=== PATIENT | male | born 1955 | race Caucasian/White ===

== ENCOUNTER 2024-04-09 12:02 | Inpatient (IN) | payer OTHER ==
[~2024-04-09] VITALS: Ht 185.4 cm; Wt 94.8 kg
[~2024-04-09 12:02] MED LIST: ASPIRIN ADULT L81 M2 PO; COZAAR100 MG PO; DITROPAN XL10 MG PO; HYDROCHLOROTH12.5 M2 PO; INVEGA3 MG PO; LIPITOR80 MG PO; MEMANTINE HCL10 MG PO; METOPROLOL SUCC50 M2 PO; MIRALAX POWDER17 G1 PO; NORVASC10 MG PO; PALIPERIDONE ER6 MG PO; REMERON15 M2 PO; RIVASTIGMINE TAR3 M1 PO; RIVASTIGMINE TAR6 M1 PO; ROZEREM8 MG PO; SENNA8.6 MG PO; SYMB80 INH; VITAMIN D325 MCG PO
[2024-04-09 12:13] VITALS: BP 111/59
[2024-04-09 12:24] LABS: BASO # 0.1 10*3/uL (0.0-0.1); EOS # 0.4 10*3/uL (0.0-0.4); EOS % 3.3 % (1.0-4.0); HEMATOCRIT 47.7 % (42.0-52.0); LYMPH # 1.3 10*3/uL (1.3-4.4); LYMPH % 10.8 % (27.0-41.0); MEAN CORPUSCULAR HGB 31.7 pg (27.0-31.0); MEAN CORPUSCULAR HGB CONC 32.1 g/dl (33.0-37.0); MEAN PLATELET VOLUME 10.3 fl (9.6-12.3); MONO % 7.8 % (3.0-9.0); NEUT # 9.3 10*3/uL (2.3-7.9); NEUT % 76.4 % (47.0-73.0); PLATELET COUNT AUTOMATED 270 10*3/uL (130-400); RED BLOOD COUNT 4.82 10*6/uL (4.50-5.90); RED CELL DISTRI WIDTH 12.8 % (0-14.5); WHITE BLOOD COUNT 12.2 10*3/uL (4.8-10.8)
[2024-04-09] MEDS ORDERED: HYDROCHLOROTH12.5 M2 PO (12:27)
[2024-04-09] MEDS ORDERED: GEMTESA75 MG PO (12:27)
[2024-04-09 12:42] LABS: BUN 19 mg/dl (9-23); CHLORIDE 110 mmol/L (98-107); POTASSIUM 3.9 mmol/L (3.4-5.1)
[2024-04-09 14:07] LABS: BILIRUBIN Negative (Negative); BLOOD Negative (Negative); CLARITY Clear (Clear); COLOR Yellow (Yellow); GLUCOSE Negative (Negative); KETONE Negative (Negative); LEUKO ESTERASE 2+ (Negative); NITRITE Positive (Negative); PH 5.5 (4.5-8.0)
[2024-04-09 14:26] LABS: BACTERIA 4+; WBC TNTC wbc/hpf (0-5)
[2024-04-09 15:23] VITALS: BP 120/68
[2024-04-09 17:13] VITALS: BP 118/74
[2024-04-09] MEDS ORDERED: ACETAMINOPHEN 325 MG TAB PO PRN (20:00)
[2024-04-09] MEDS ORDERED: Magnesium Hydroxide 30 ML UDC PO PRN (20:00)
[2024-04-09] MEDS ORDERED: MG-AL HYDROXIDE/SIMETICONE 30 ML UDC PO PRN (20:00)
[2024-04-09] MEDS ORDERED: Menthol/Zinc Oxide 4 GM THIN T PRN (20:05)
[2024-04-09] MEDS ORDERED: NAMENDA-5 PO (20:09)
[2024-04-09] MEDS ORDERED: RISPERDAL1 M1 PO (20:10)
[2024-04-09] MEDS ORDERED: ATIVAN1 MG PO (20:15)
[2024-04-09] MEDS ORDERED: STERILE WATER 110 ML IM (20:16)
[2024-04-09] MEDS ORDERED: ATIVAN1 MG IM (20:16)
[2024-04-09] MEDS ORDERED: GEODON20 MG/1 ML IM (20:17)
[2024-04-09] MEDS ORDERED: LORazepam 1 MG TAB PO PRN (20:30)
[2024-04-09] MEDS ORDERED: Water, Sterile 10 ML VIAL IM PRN (20:30)
[2024-04-09] MEDS ORDERED: Ziprasidone Mesylate 20 MG VIAL IM PRN (20:30)
[2024-04-09] MEDS ORDERED: ATIVAN2 MG/1 ML IM (20:31)
[2024-04-09] MEDS ORDERED: LORazepam 2 MG/ML VIAL IM PRN (20:35)
[2024-04-09 20:55] VITALS: BP 113/60
[2024-04-09] MEDS ORDERED: RISPERIDONE 1 MG TAB PO SCH (21:00)
[2024-04-09] MEDS ORDERED: Memantine Hydrochloride 5 MG TAB PO SCH (21:00)
[2024-04-09] MEDS ORDERED: Rivastigmine Tartrate 3 MG CAP PO SCH (21:00)
[2024-04-09] MEDS ORDERED: Mirtazapine 15 MG TAB PO SCH (21:00)
[2024-04-10] MEDS ORDERED: Polyethylene Glycol 3350 17 GM PACKET PO PRN (04:40)
[2024-04-10 07:31] LABS: ALKALINE PHOSPHATASE 105 U/L (46-116); BUN 16 mg/dl (9-23); CHLORIDE 108 mmol/L (98-107); CHOLESTEROL 109 mg/dL (<200); LDL CHOLESTEROL 63 mg/dL (9-159); POTASSIUM 3.8 mmol/L (3.4-5.1); SGPT/ALT 9 U/L (5-49); TOTAL PROTEIN 6.9 gm/dL (6.0-8.0); TRIGLYCERIDES 72 mg/dl (<150)
[2024-04-10 08:00] VITALS: BP 84/55
[2024-04-10 08:18] LABS: BASO # 0.1 10*3/uL (0.0-0.1); BASO % 0.9 % (0.0-1.0); EOS # 0.4 10*3/uL (0.0-0.4); EOS % 3.5 % (1.0-4.0); HEMATOCRIT 49.6 % (42.0-52.0); LYMPH # 1.7 10*3/uL (1.3-4.4); LYMPH % 13.5 % (27.0-41.0); MEAN CELL VOLUME 97.6 fl (80.0-94.0); MEAN CORPUSCULAR HGB 31.1 pg (27.0-31.0); MEAN CORPUSCULAR HGB CONC 31.9 g/dl (33.0-37.0); MEAN PLATELET VOLUME 10.6 fl (9.6-12.3); MONO # 0.8 10*3/uL (0.1-1.0); MONO % 6.5 % (3.0-9.0); NEUT # 9.5 10*3/uL (2.3-7.9); PLATELET COUNT AUTOMATED 224 10*3/uL (130-400); RED BLOOD COUNT 5.08 10*6/uL (4.50-5.90); RED CELL DISTRI WIDTH 12.8 % (0-14.5); WHITE BLOOD COUNT 12.7 10*3/uL (4.8-10.8)
[2024-04-10 08:27] LABS: VITAMIN D, 25-HYDROXY 50.8 ng/mL (30-100)
[2024-04-10] MEDS ORDERED: Losartan Potassium 50 MG TAB PO SCH (09:00)
[2024-04-10] MEDS ORDERED: ASPIRIN ENTERIC COATED 81 MG TAB PO SCH (09:00)
[2024-04-10] MEDS ORDERED: Ciprofloxacin Hydrochloride 250 MG TAB PO SCH (09:00)
[2024-04-10] MEDS ORDERED: HYDROCHLOROTHIAZIDE 25 MG TAB PO SCH (09:00)
[2024-04-10] MEDS ORDERED: amLODIPine besylate 10 MG TAB PO SCH (09:00)
[2024-04-10] MEDS ORDERED: METOPROLOL SUCCINATE XR 50 MG TAB PO SCH (09:00)
[2024-04-10] MEDS ORDERED: Sennosides A and B 8.6 MG TAB PO SCH (09:00)
[2024-04-10] MEDS ORDERED: Cholecalciferol 2,000 UNIT TABLET (50 MCG) PO SCH (09:00)
[2024-04-10 11:08] VITALS: BP 98/63
[2024-04-10 20:00] VITALS: BP 116/61
[2024-04-10] MEDS ORDERED: ATORVASTATIN CALCIUM 80 MG TAB PO SCH (21:00)
[2024-04-11 07:45] LABS: ALKALINE PHOSPHATASE 108 U/L (46-116); BUN 20 mg/dl (9-23); CHLORIDE 108 mmol/L (98-107); POTASSIUM 3.8 mmol/L (3.4-5.1); SGPT/ALT 13 U/L (5-49); TOTAL PROTEIN 7.1 gm/dL (6.0-8.0)
[2024-04-11 07:47] LABS: BASO # 0.1 10*3/uL (0.0-0.1); BASO % 0.8 % (0.0-1.0); EOS # 0.4 10*3/uL (0.0-0.4); EOS % 3.3 % (1.0-4.0); HEMATOCRIT 46.7 % (42.0-52.0); LYMPH # 1.5 10*3/uL (1.3-4.4); LYMPH % 12.3 % (27.0-41.0); MEAN CELL VOLUME 96.7 fl (80.0-94.0); MEAN CORPUSCULAR HGB 31.5 pg (27.0-31.0); MEAN CORPUSCULAR HGB CONC 32.5 g/dl (33.0-37.0); MONO # 0.7 10*3/uL (0.1-1.0); MONO % 5.7 % (3.0-9.0); NEUT # 9.6 10*3/uL (2.3-7.9); NEUT % 77.4 % (47.0-73.0); PLATELET COUNT AUTOMATED 220 10*3/uL (130-400); RED BLOOD COUNT 4.83 10*6/uL (4.50-5.90); RED CELL DISTRI WIDTH 12.8 % (0-14.5); WHITE BLOOD COUNT 12.4 10*3/uL (4.8-10.8)
[2024-04-11 08:00] VITALS: BP 104/64
[2024-04-11] MEDS ORDERED: LEPTOSPERMUM HONEY 0.5 OZ TUBE T ONE ×2 (14:18)
[2024-04-11] MEDS ORDERED: FOAM BANDAGE 4X4 T ONE ×2 (14:18)
[2024-04-11 20:00] VITALS: BP 122/67
[2024-04-11] MEDS ORDERED: Memantine Hydrochloride 5 MG TAB PO SCH (21:00)
[2024-04-12 07:50] VITALS: BP 112/86
[2024-04-12] MEDS ORDERED: Rivastigmine Tartrate 1.5 MG CAP PO SCH (09:00)
[2024-04-12] MEDS ORDERED: FOAM BANDAGE 4X4 T ONE (11:46)
[2024-04-12 19:12] VITALS: BP 140/81
[2024-04-12] MEDS ORDERED: Memantine Hydrochloride 10 MG TAB PO SCH (21:00)
[2024-04-13 07:56] VITALS: BP 130/80
[2024-04-13 20:00] VITALS: BP 107/72
[2024-04-14 08:00] VITALS: BP 120/83
[2024-04-14] MEDS ORDERED: RISPERIDONE 0.5 MG TAB PO SCH (09:00)
[2024-04-14 19:21] VITALS: BP 114/68
[2024-04-14] MEDS ORDERED: RISPERIDONE 1 MG TAB PO SCH (21:00)
[2024-04-15 08:04] VITALS: BP 139/91
[2024-04-15] MEDS ORDERED: RISPERIDONE 0.5 MG TAB PO SCH (09:00)
[2024-04-15 20:00] VITALS: BP 126/90
[2024-04-16 08:00] VITALS: BP 135/67
[2024-04-16 20:00] VITALS: BP 135/67
[2024-04-17 08:00] VITALS: BP 124/90
[2024-04-17 20:00] VITALS: BP 130/89
[2024-04-18 07:56] VITALS: BP 139/82
[2024-04-18 19:40] VITALS: BP 125/80
[2024-04-19 07:34] LABS: BASO # 0.1 10*3/uL (0.0-0.1); BASO % 1.2 % (0.0-1.0); EOS # 0.5 10*3/uL (0.0-0.4); EOS % 3.9 % (1.0-4.0); HEMATOCRIT 48.8 % (42.0-52.0); LYMPH # 2.2 10*3/uL (1.3-4.4); LYMPH % 18.4 % (27.0-41.0); MEAN CELL VOLUME 99.8 fl (80.0-94.0); MEAN CORPUSCULAR HGB 31.7 pg (27.0-31.0); MEAN CORPUSCULAR HGB CONC 31.8 g/dl (33.0-37.0); MEAN PLATELET VOLUME 10.9 fl (9.6-12.3); MONO % 8.3 % (3.0-9.0); NEUT # 8.3 10*3/uL (2.3-7.9); NEUT % 67.8 % (47.0-73.0); PLATELET COUNT AUTOMATED 221 10*3/uL (130-400); RED BLOOD COUNT 4.89 10*6/uL (4.50-5.90); WHITE BLOOD COUNT 12.2 10*3/uL (4.8-10.8)
[2024-04-19 07:36] LABS: ALKALINE PHOSPHATASE 123 U/L (46-116); BUN 18 mg/dl (9-23); CHLORIDE 108 mmol/L (98-107); SGPT/ALT 25 U/L (5-49); TOTAL PROTEIN 6.7 gm/dL (6.0-8.0)
[2024-04-19 08:00] VITALS: BP 142/118
[2024-04-19 10:31] VITALS: BP 132/78
[2024-04-19 10:32] VITALS: BP 132/78
[2024-04-19 15:17] LABS: BILIRUBIN Negative (Negative); BLOOD Negative (Negative); CLARITY Clear (Clear); COLOR Yellow (Yellow); GLUCOSE Negative (Negative); KETONE Negative (Negative); LEUKO ESTERASE Negative (Negative); NITRITE Negative (Negative); SPECIFIC GRAVITY 1.025 (1.001-1.030); UROBILINOGEN 0.2 E.U./dl (0.0-1.0)
[2024-04-19 15:28] LABS: MUCOUS 1+; RBC 0-2 rbc/hpf (0-2)
[2024-04-19 15:29] LABS: CALCIUM OXALATE CRYSTALS Trace
[2024-04-19 20:00] VITALS: BP 132/78
[2024-04-20 08:00] VITALS: BP 105/72
[2024-04-20 20:00] VITALS: BP 122/80
[2024-04-21] MEDS ORDERED: RISPERIDONE0.5 MG PO (07:49)
[2024-04-21] MEDS ORDERED: MEMANTINE HCL10 MG PO (07:49)
[2024-04-21 08:00] VITALS: BP 119/85
== END 2024-04-21 13:28 | DRG 885 ==
LOC: ED 12:02 → 3N 15:57
PROVIDERS: Internal Medicine; Nurse Practitioner Family; Nurse Practitioner Women's Health; Student in an Organized Health Care Education/Training Program; ADMIT Psychiatry & Neurology Psychiatry; ATTEND Psychiatry & Neurology Psychiatry
PROC: GZHZZZZ Group Psychotherapy (ICD-10-PCS; principal; 2024-04-09)
PROC: GZ56ZZZ Individual Psychotherapy, Supportive (ICD-10-PCS; 2024-04-09)
DX: F33.2 Major depressive disorder, recurrent severe without psychotic features (principal); F01.518 Vascular dementia, unspecified severity, with other behavioral disturbance; E44.0 Moderate protein-calorie malnutrition; N30.00 Acute cystitis without hematuria; I42.9 Cardiomyopathy, unspecified; F25.9 Schizoaffective disorder, unspecified; I95.9 Hypotension, unspecified; J45.40 Moderate persistent asthma, uncomplicated; E66.9 Obesity, unspecified; E78.5 Hyperlipidemia, unspecified; I10 Essential (primary) hypertension; J44.9 Chronic obstructive pulmonary disease, unspecified; M17.12 Unilateral primary osteoarthritis, left knee; F41.9 Anxiety disorder, unspecified; D72.829 Elevated white blood cell count, unspecified; E87.8 Other disorders of electrolyte and fluid balance, not elsewhere classified; R73.9 Hyperglycemia, unspecified; E78.2 Mixed hyperlipidemia; G89.4 Chronic pain syndrome; K59.00 Constipation, unspecified; E55.9 Vitamin D deficiency, unspecified; Z79.899 Other long term (current) drug therapy; Z79.01 Long term (current) use of anticoagulants; Z79.2 Long term (current) use of antibiotics; Z86.73 Personal history of transient ischemic attack (TIA), and cerebral infarction without residual deficits; Z68.27 Body mass index [BMI] 27.0-27.9, adult